=== PATIENT | male | born 1945 | race Caucasian/White ===

== ENCOUNTER 2018-10-10 09:14 | Day surgery (SDC) | payer OTHER ==
[~2018-10-10] VITALS: Ht 175.3 cm; Wt 47.2 kg
[~2018-10-10 09:14] MED LIST: SODIUM CHLORIDE 0.9% 1000ML 1,000 ML IV ONE
[2018-10-10 12:00] VITALS: BP 100/52
[2018-10-10] MEDS ORDERED: IOHEXOL-350 50ML VIAL IV ONE (12:06)
[2018-10-10] MEDS ORDERED: TAMS-1 PO (12:37)
[2018-10-10] MEDS ORDERED: KETO200T PO (12:37)
[2018-10-10] MEDS ORDERED: HYDROCODONE PO (12:37)
[2018-10-10] MEDS ORDERED: GABA-529 PO (12:37)
[2018-10-10] MEDS ORDERED: FERROUS SULFATE (12:37)
[2018-10-10] MEDS ORDERED: BUDE1AMP2 IH (12:37)
[2018-10-10] MEDS ORDERED: SIMV5TAB58 PO (12:37)
[2018-10-10] MEDS ORDERED: MULT-1192 PO (12:37)
[2018-10-10] MEDS ORDERED: ATROPINE (12:37)
[2018-10-10] MEDS ORDERED: TIOT18CA3 IH (12:37)
[2018-10-10] MEDS ORDERED: PRED5SOL PO (12:37)
[2018-10-10] MEDS ORDERED: AUD IH (12:37)
[2018-10-10] MEDS ORDERED: GUAI100S13 PO (12:37)
[2018-10-10] MEDS ORDERED: OMEP20CA10 PO (12:37)
[2018-10-10] MEDS ORDERED: CLOP75TA14 PO (12:48)
[2018-10-10] MEDS ORDERED: ZIT500IVPB IV (12:48)
[2018-10-10] MEDS ORDERED: HEPARIN SQ (12:48)
[2018-10-10] MEDS ORDERED: CEFE1PIG3 IV (12:48)
--- NOTE | 2018-10-10 13:33 | NUR ---
NURSING PROC WAS CANCELLED DUE TO BLOOD THINNER ADMINISTERED AT N/H. IV TURNED INTO SL TO LT HAND FOR USE AT RI FOR ABX THERAPY. PT D/C TO EMS SERVICES TO RETURN TO [facility]. PT IN STABLE CONDITION AND VERY TALKATIVE. PT TO RETURN ON SAT FOR PROC. Addendum: 10/10/18 at 1338 by VELASQUEZ GALEANO RN Amended: Links added.
== END 2018-10-10 13:42 ==
LOC: DAH 09:14 → ENDO 09:14
PROVIDERS: ATTEND Internal Medicine
DX: R93.2 Abnormal findings on diagnostic imaging of liver and biliary tract (principal); Z53.8 Procedure and treatment not carried out for other reasons; D64.9 Anemia, unspecified; J44.9 Chronic obstructive pulmonary disease, unspecified; E78.5 Hyperlipidemia, unspecified; Z88.2 Allergy status to sulfonamides
CPT/HCPCS: J7030; Q9967

== ENCOUNTER 2018-10-14 10:11 | Day surgery (SDC) | payer OTHER ==
[~2018-10-14] VITALS: Ht 175.3 cm; Wt 44.9 kg
[2018-10-14] VITALS (21 sets, daily range): BP systolic 102–145; BP diastolic 56–70
[~2018-10-14 10:11] MED LIST changes: +ATROPINE; +AUD IH; +BUDE1AMP2 IH; +CEFE1PIG3 IV; +CLOP75TA14 PO; +FERROUS SULFATE; +GABA-529 PO; +GUAI100S13 PO; +HEPARIN SQ; +HYDROCODONE PO; +KETO200T PO; +MULT-1192 PO; +OMEP20CA10 PO; +PRED5SOL PO; +SIMV5TAB58 PO; +TAMS-1 PO; +TIOT18CA3 IH; +ZIT500IVPB IV
--- NOTE | 2018-10-14 11:13 | NUR ---
nursing recd report from naida [facility]. states pt last recd plavix 10/10/18 and heparin 10/12/18 Addendum: 10/14/18 at 1114 by VELASQUEZ GALEANO RN Amended: Links added.
[2018-10-14] MEDS ORDERED: [UNRECOGNIZED DRUG - OTHER] (11:20)
[2018-10-14] MEDS ORDERED: METR500P3 IV (11:20)
[2018-10-14] MEDS ORDERED: MONT10TA24 PO (11:20)
[2018-10-14] MEDS ORDERED: CARV6.25 PO (11:22)
[2018-10-14] MEDS ORDERED: ASPI-1197 PO (11:22)
[2018-10-14] MEDS ORDERED: IOHEXOL-350 50ML VIAL IV ONE (11:22)
[2018-10-14] MEDS ORDERED: ATOR40TA71 PO (11:22)
[2018-10-14] MEDS ORDERED: INDOMETHACIN 50 MG SUPP.RECT RC SCH (12:30)
[2018-10-14] MEDS ORDERED: FENTANYL CITRATE PF 50 MCG/1 ML 2ML VIAL ONE (12:58)
[2018-10-14] MEDS ORDERED: IPRATROPIUM/ALBUTEROL SULFATE 3 ML SOLUTION IH ONE (13:52)
--- NOTE | 2018-10-14 15:45 | NUR ---
Update Janae Figueroa LVN from [facility] called back to inform her the patient should not have Aspirin or Ibuprofen indefinitely but may call the public relations account executive to see what they say.
--- NOTE | 2018-10-14 15:48 | NUR ---
Update [facility] called at 1517. Report given to Janae Figueroa LVN from [facility] at . Awaiting EMS.
== END 2018-10-14 16:07 ==
LOC: ENDO 10:11 → DAH 10:11 → ENDO 16:07
PROVIDERS: ATTEND Internal Medicine
DX: K83.1 Obstruction of bile duct (principal); Z96.89 Presence of other specified functional implants; R93.2 Abnormal findings on diagnostic imaging of liver and biliary tract; R94.5 Abnormal results of liver function studies; E78.5 Hyperlipidemia, unspecified; Z98.890 Other specified postprocedural states; Z79.899 Other long term (current) drug therapy; D64.9 Anemia, unspecified; I73.9 Peripheral vascular disease, unspecified; I21.3 ST elevation (STEMI) myocardial infarction of unspecified site; I11.0 Hypertensive heart disease with heart failure; I50.22 Chronic systolic (congestive) heart failure; F33.9 Major depressive disorder, recurrent, unspecified; I25.10 Atherosclerotic heart disease of native coronary artery without angina pectoris; J44.1 Chronic obstructive pulmonary disease with (acute) exacerbation
CPT/HCPCS: 43261; 43264; 43274; 74330; 93005; 94640; A4606; C1769 ×2; C1773; C2625; J3010; J7030; Q9967; 43262